=== PATIENT | male | born 1990 | race Caucasian/White ===

== ENCOUNTER 2018-12-18 14:53 | Emergency (ER) | payer BC ==
[2018-12-18] MEDS ORDERED: KETOROLAC 30 MG/ML INJ ONE (16:52)
[2018-12-18] MEDS ORDERED: ONDANSETRON 4 MG/2 ML VIAL ONE (17:01)
[2018-12-18 17:14] LABS: Absolute Lymphocytes (CBC) 3.5 K/uL (0.7-4.9); Absolute Monocytes 0.8 K/uL (0.1-1.3); Absolute Neutrophil 5.7 K/uL (1.8-8.0); Basophils % 0.6 % (0-1.3); Eosinophils % 2.6 % (0-4.4); Hematocrit 46.9 % (39.6-49.0); Lymphocytes % 33.7 % (15.3-44.8); MPV 8.9 fL (7.6-11.3); Monocytes % 7.9 % (3.3-12.3)
[2018-12-18 17:15] LABS: Protime INR 0.98
--- NOTE | 2018-12-18 17:54 | RAD REPORT ---
EXAM DESCRIPTION: RAD - Chest Single View - 12/18/2018 5:42 pm CLINICAL HISTORY: Chest pain COMPARISON: None. TECHNIQUE: AP portable chest image was obtained 1725 hours . FINDINGS: Lungs are clear. Heart and vasculature are normal. No measurable pleural effusion and no p neumothorax. No acute bony abnormality seen. No acute aortic findings suspected. IMPRESSION: No acute cardiopulmonary process.
[2018-12-18 18:12] LABS: ALT/SGPT 43 U/L (12-78); AST/SGOT 24 U/L (15-37); Albumin 4.4 g/dL (3.4-5.0); Alkaline Phosphatase 78 U/L (45-117); BUN Blood Urea Nitrogen 12 mg/dL (7-18); Bicarbonate 27 mmol/L (21-32); Bilirubin Direct 0.2 mg/dL (0-0.2); Glucose Level 90 mg/dL (74-106); Magnesium 2.2 mg/dL (1.8-2.4); NT PRO-BNP 9 pg/mL (<125); Potassium 4.1 mmol/L (3.5-5.1); Protein, Total 8.2 g/dL (6.4-8.2); Sodium Level 142 mmol/L (136-145); Troponin (Emerg Dept Use Only) < 0.02 ng/mL (0.0-0.045)
--- NOTE | 2018-12-18 18:16 | EDPHYS ---
Physician Documentation [facility] Name: Lorenzo Herrmann Age: 28 yrs Sex: Male : 1990 Arrival Date: 12/18/2018 Time: 14:53 Bed 15 Private MD: Unknown, Unknown ED Physician Guy Trejo HPI: 12/18 16:19 This 28 yrs old Male presents to ER via Ambulatory with complaints of Chest jmm Pain. 17:48 The patient or guardian reports chest pain that is located primarily in the anterior [facility] chest wall. The pain does not radiate. The chest pain is described as sharp. Duration: The patient or guardian reports a single episode, that is still ongoing. This is a 28 year old male with no chronic medical conditions that presents to the ED with complaints of sternal chest pain beginning today at approx 1400. Pain does not radiate, pain is non exertional. Patient denies shortness of breath. Patient denies tobacco or recreational drug use. Patient denies family history of CAD. . Historical: - Allergies: 15:14 No Known Allergies; sv - PMHx: 15:14 None; sv - PSHx: 15:14 lip; foot; chin; sv - Immunization history:: Adult Immunizations unknown. - Social history:: Smoking status: Patient/guardian denies using tobacco. - Ebola Screening: : No symptoms or risks identified at this time. ROS: 17:48 Constitutional: Negative for fever, chills, and weight loss. jmm 17:48 Abdomen/GI: Negative for abdominal pain, nausea, vomiting, diarrhea, and constipation, MS/Extremity: Negative for injury and deformity. 17:48 Cardiovascular: Positive for chest pain. 17:48 All other systems are negative. Exam: 17:48 Constitutional: This is a well developed, well nourished patient who is awake, alert, jmm and in no acute distress. Head/Face: atraumatic. Eyes: EOMI, no conjunctival erythema appreciated ENT: Moist Mucus Membranes Neck: Trachea midline, Supple 17:48 Cardiovascular: Regular rate and rhythm. No edema appreciated 17:48 Abdomen/GI: Non distended, soft Back: Normal ROM Skin: General appearance color normal MS/ Extremity: Moves all extremities, no obvious deformities appreciated, no edema noted to the lower extremities Neuro: Awake and alert, normal gait Psych: Behavior is normal, Mood is normal, Patient is cooperative and pleasant 17:48 Chest/axilla: Palpation: tenderness, that is moderate, that totally reproduces the patient's complaints. 17:48 Respiratory: the patient does not display signs of respiratory distress, Respirations: normal, Breath sounds: are clear throughout. Vital Signs: 15:14 BP 134 / 87; Pulse 85; Resp 18; Temp 98; Pulse Ox 97% ; Weight 99.79 kg; Height 6 ft. 0 sv in. (182.88 cm); Pain 7/10; 17:00 BP 107 / 74; Pulse 76; Resp 18; Pulse Ox 96% on R/A; ph 18:00 BP 118 / 72; Pulse 78; Resp 16; Temp 98.0; Pulse Ox 98% on R/A; ph 15:14 Body Mass Index 29.84 (99.79 kg, 182.88 cm) sv MDM: 16:19 Patient medically screened. [facility] 18:13 Data reviewed: vital signs, nurses notes. Counseling: I had a detailed discussion with denilson the patient and/or guardian regarding: the historical points, exam findings, and any diagnostic results supporting the discharge/admit diagnosis, lab results, radiology results, the need for outpatient follow up, to return to the emergency department if symptoms worsen or persist or if there are any questions or concerns that arise at home. ED course: HEART SCORE = 0, PERC NEGATIVE. Pain appears most likely chest wall. Patient is advised to follow up with cardiology for outpatient evaluation. patient is otherwise given strict return precautions. patient understood and agrees with the plan of care. . 12/18 16:27 Order name: Basic Metabolic Panel; Complete Time: 18:13 [facility] 12/18 16:27 Order name: CBC with Diff; Complete Time: 17:19 [facility] 12/18 16:27 Order name: LFT's; Complete Time: 18:13 [facility] 12/18 16:27 Order name: Magnesium; Complete Time: 18:13 [facility] 12/18 16:27 Order name: NT PRO-BNP; Complete Time: 18:13 [facility] 12/18 16:27 Order name: PT-INR; Complete Time: 17:36 [facility] 12/18 15:15 Order name: EKG; Complete Time: 15:15 sv 12/18 15:15 Order name: EKG - Nurse/Tech; Complete Time: 17:32 sv 12/18 16:27 Order name: Troponin (emerg Dept Use Only); Complete Time: 18:13 [facility] 12/18 16:27 Order name: XRAY Chest (1 view); Complete Time: 17:55 [facility] 12/18 16:27 Order name: Cardiac monitoring; Complete Time: 17:31 [facility] 12/18 16:27 Order name: IV Saline Lock; Complete Time: 17:31 [facility] 12/18 16:27 Order name: Labs collected and sent; Complete Time: 17:31 [facility] 12/18 16:27 Order name: O2 Per Protocol; Complete Time: 17:32 [facility] 12/18 16:27 Order name: O2 Sat Monitoring; Complete Time: 17:32 [facility] Administered Medications: 16:58 Drug: Zofran 4 mg Route: IVP; Site: left antecubital; ph 17:00 Drug: Ketorolac 30 mg Route: IVP; Site: left antecubital; ph Disposition: 12/18/18 18:15 Discharged to Home. Impression: Chest pain, unspecified. - Condition is Stable. - Discharge Instructions: Nonspecific Chest Pain. - Prescriptions for Ibuprofen 800 mg Oral Tablet - take 1 tablet by ORAL route every 8 hours As needed take with food; 30 tablet. - Medication Reconciliation Form, Thank You Letter, Antibiotic Education, Prescription Opioid Use, Work release form form. - Follow up: Brad Magana MD; When: 2 - 3 days; Reason: Recheck today's complaints, Continuance of care, Re-evaluation by your physician. Addendum: 12/21/2018 07:18 Co-signature as Attending Physician, Guy Trejo MD I agree with the assessment and k dr plan of care. Signatures: Dispatcher [employer] Nguyen Campuzano RN Guy Handley MD MD kdr Mickail, Joel, PA PA Michelle Aaron RN RN Genevieve Blood RN RN Corrections: (The following items were deleted from the chart) 12/18 18:40 18:15 12/18/2018 18:15 Discharged to Home. Impression: Chest pain, unspecified. hb Condition is Stable. Forms are Medication Reconciliation Form, Thank You Letter, Antibiotic Education, Prescription Opioid Use. Follow up: Brad Magana; When: 2 - 3 days; Reason: Recheck today's complaints, Continuance of care, Re-evaluation by your physician. denilson
--- NOTE | 2018-12-18 18:16 | ER ---
Nurse's Notes [facility] Name: Lorenzo Herrmann Age: 28 yrs Sex: Male : 1990 Arrival Date: 12/18/2018 Time: 14:53 Bed 15 Private MD: Unknown, Unknown Diagnosis: Chest pain, unspecified Presentation: 12/18 15:12 Presenting complaint: Patient states: intermittent midsternal chest pain started today sv while sitting at work. Denies SOB. Transition of care: patient was not received from another setting of care. Onset of symptoms was December 18, 2018. Care prior to arrival: None. 15:12 Method Of Arrival: Ambulatory sv 15:12 Acuity: LISA 3 sv 17:40 Risk Assessment: Do you want to hurt yourself or someone else? Patient reports no ph desire to harm self or others. Initial Sepsis Screen: Does the patient meet any 2 criteria? No. Patient's initial sepsis screen is negative. Does the patient have a suspected source of infection? No. Patient's initial sepsis screen is negative. Triage Assessment: 15:14 General: Appears in no apparent distress. uncomfortable, well developed, Behavior is sv calm, cooperative, appropriate for age. Pain: Complains of pain in mid-sternal area Pain currently is 7 out of 10 on a pain scale. Neuro: Level of Consciousness is awake, alert, obeys commands, Oriented to person, place, time, situation, Gait is steady. Respiratory: Respiratory effort is even, unlabored, Respiratory pattern is regular, symmetrical. Derm: Skin is normal. Historical: - Allergies: 15:14 No Known Allergies; sv - PMHx: 15:14 None; sv - PSHx: 15:14 lip; foot; chin; sv - Immunization history:: Adult Immunizations unknown. - Social history:: Smoking status: Patient/guardian denies using tobacco. - Ebola Screening: : No symptoms or risks identified at this time. Screenin:52 Abuse screen: Denies threats or abuse. Denies injuries from another. Nutritional ph screening: No deficits noted. Tuberculosis screening: No symptoms or risk factors identified. Fall Risk None identified. Assessment: 16:30 General: Appears in no apparent distress. comfortable, well groomed, Behavior is ph cooperative, appropriate for age, anxious, Denies fever, feeling ill. Pain: Complains of pain in mid-sternal area Pain does not radiate. Pain began suddenly. Neuro: Level of Consciousness is awake, alert, obeys commands, Oriented to person, place, time, situation. Cardiovascular: Reports chest pain, palpitations, Denies lightheadedness, nausea, shortness of breath, vomiting, Capillary refill < 3 seconds in bilateral fingers Patient's skin is warm and dry. Respiratory: Airway is patent Respiratory effort is even, unlabored, Respiratory pattern is regular, symmetrical. Derm: Skin is intact, is healthy with good turgor, Skin is pink, warm \T\ dry. Musculoskeletal: Circulation, motion, and sensation intact. Range of motion: intact in all extremities. 17:00 Reassessment: Patient appears in no apparent distress at this time. Patient and/or ph family updated on plan of care and expected duration. Pain level reassessed. Patient is alert, oriented x 3, equal unlabored respirations, skin warm/dry/pink. Pt became dizzy and nauseous after IV insertion, ERP notified, see DEC. 18:00 Reassessment: Patient appears in no apparent distress at this time. Patient and/or ph family updated on plan of care and expected duration. Pain level reassessed. Patient is alert, oriented x 3, equal unlabored respirations, skin warm/dry/pink. Ptg resting quietly, awaiting lab and radiology results. Vital Signs: 15:14 BP 134 / 87; Pulse 85; Resp 18; Temp 98; Pulse Ox 97% ; Weight 99.79 kg; Height 6 ft. 0 sv in. (182.88 cm); Pain 7/10; 17:00 BP 107 / 74; Pulse 76; Resp 18; Pulse Ox 96% on R/A; ph 18:00 BP 118 / 72; Pulse 78; Resp 16; Temp 98.0; Pulse Ox 98% on R/A; ph 15:14 Body Mass Index 29.84 (99.79 kg, 182.88 cm) sv ED Course: 14:53 Patient arrived in ED. ag5 14:54 Unknown, Unknown is Private Physician. ag5 15:13 Triage completed. sv 15:14 Arm band placed on. sv 15:31 EKG done, by correctional maintenance technician. reviewed by Guy Trejo MD. sm3 15:50 Vamshi Jimenez PA is PHCP. jmm 15:50 Guy Trejo MD is Attending Physician. [facility] 15:51 Michelle Lisa, RN is Primary Nurse. ph 15:53 No provider procedures requiring assistance completed. ph 16:00 Inserted saline lock: 20 gauge in left antecubital area, using aseptic technique. ph 17:42 XRAY Chest (1 view) In Process Unspecified. EDMS 17:45 Patient has correct armband on for positive identification. Bed in low position. Call ph light in reach. Side rails up X 1. feeder driver on. Pulse ox on. NIBP on. Warm blanket given. PO fluids given. 18:15 Brad Magana MD is Referral Physician. [facility] 18:40 IV discontinued, intact, bleeding controlled, No redness/swelling at site. Pressure ph dressing applied. Patient maintains SpO2 saturation greater than 95% on room air. Administered Medications: 16:58 Drug: Zofran 4 mg Route: IVP; Site: left antecubital; ph 17:00 Drug: Ketorolac 30 mg Route: IVP; Site: left antecubital; ph Outcome: 18:15 Discharge ordered by MD. [facility] 18:40 Patient left the ED. hb 18:40 Discharged to home ambulatory. ph 18:40 Condition: good 18:40 Discharge instructions given to patient, Instructed on discharge instructions, follow up and referral plans. medication usage, Demonstrated understanding of instructions, follow-up care, medications, Prescriptions given X 1. Signatures: Dispatcher [employer] EDIA Nguyen Cunningham RN RN sv Mickail, Joel, PA PA [facility] Michelle Lisa, CARRIE BUTLER Genevieve Blood RN RN Yvette Perez 3 Renato Caceres [facility]
== END 2018-12-18 18:40 | disposition home or self-care (01) ==
LOC: ER 14:53
DX: R07.9 Chest pain, unspecified (principal)
CPT/HCPCS: 36415; 71045; 80048; 80076; 83735; 83880; 84484; 85025; 85610; 93005; 96374; 96375; 99285; J2405